=== PATIENT | female | born 1950 | race Caucasian/White ===

== ENCOUNTER 2017-02-17 09:01 | Day surgery (SDC) | payer OTHER ==
[2017-02-17] VITALS (10 sets, daily range): BP systolic 148–185; BP diastolic 58–87; PULSE 60–78; RESP 18; TEMP 97.8–98.3; O2SAT 95–98
[~2017-02-17] VITALS: Ht 162.6 cm; Wt 53.6 kg
[~2017-02-17 09:01] MED LIST: CALC500T21 PO; DICY1TAB26 PO; FISHCAP PO; PROB1TAB PO; PROT40TA PO; SODIUM CHLOR 0.9% 1000 ML IV SCH; ULTR50TA PO; ZOFR4TAB3 SL
[2017-02-17 10:02] LABS: APTT (PATIENT) 26.9 SEC (24.3-30.1); INTERNATIONAL NORMALIZED RATIO 0.9 RATIO; PROTHROMBIN TIME - PATIENT 10.3 SEC (9.8-11.6)
[2017-02-17] MEDS ORDERED: APRI0.372 PO (10:04)
[2017-02-17 10:10] LABS: AUTOMATED NEUTROPHIL # 5.9 TH/MM3 (1.8-7.7); BASOPHIL # 0.1 TH/MM3 (0-0.2); BASOPHIL % 0.5 % (0.0-2.0); EOSINOPHIL # 0.1 TH/MM3 (0-0.4); EOSINOPHIL % 1.2 % (0.0-4.0); HEMATOCRIT 46.8 % (35.0-46.0); HEMO FLAGS DIFF FINAL; LYMPHOCYTE # 3.3 TH/MM3 (1.0-4.8); MEAN CELL VOLUME 85.4 FL (80.0-100.0); MEAN CORPUSCULAR HEMOGLOBIN 28.5 PG (27.0-34.0); MEAN CORPUSCULAR HGB CONC 33.4 % (32.0-36.0); MONO % 8.6 % (0.0-8.0); NEUT % 57.7 % (16.0-70.0); PLATELET COUNT 297 TH/MM3 (150-450); RED BLOOD COUNT 5.49 MIL/MM3 (4.00-5.30); RED CELL DISTRIBUTION WIDTH 13.6 % (11.6-17.2); WHITE BLOOD COUNT 10.2 TH/MM3 (4.0-11.0)
[2017-02-17] MEDS ORDERED: LIDOCAINE HCL 1% 20 ML VIAL ONE (11:01)
--- NOTE | 2017-02-17 11:39 | PD.RAD ---
Post CT Procedure Prog Note Pre Procedure Diagnosis: (1) Hep C w/o coma, chronic Post Procedure Diagnosis: (1) Hep C w/o coma, chronic Procedure Date: Feb 17, 2017 Supervising Radiologist: Pasha Mendes JR Anesthesia: Local Plan of Activity Patient to Unit: [facility] See PACS Report for procedural detail/treatment Biopsy Imaging Guidance: CT Biopsy Procedure: Liver Specimen: Core Biopsy Findings: Good core sample obtained. Jr. Vaughn,Pasha Bey MD Feb 17, 2017 11:38
--- NOTE | 2017-02-17 12:31 | RADRPT ---
EXAM DATE/TIME: 02/17/2017 11:21 [place] COMPARISON: No previous studies available for comparison. INDICATIONS : Hepatitis C BIOPSY SITE: liver DEVICE(S): 1.) 18 gauge BioPince needle MEDICAL HISTORY : Hepatitis C. SURGICAL HISTORY : None. ENCOUNTER: Initial ACUITY: 1 day PAIN SCORE: 0/10 LOCATION: abdomen A total of one core specimen(s) were obtained and sent to the laboratory for pathologic evaluation. PROCEDURE: 1. CT guided liver biopsy. Prior to the procedure informed consent was obtained. Any appropriate prior imaging studies were rev iewed. Using automated exposure control and adjustment of the mA and/or kV according to patient size, radiat ion dose was kept as low as reasonably achievable to obtain optimal diagnostic quality images. DICOM format image data is available electronically for review and comparison. The site was prepped in a sterile fashion. Full sterile technique was used, including cap, mask, cari rile gloves and gown and a large sterile sheet. Hand hygiene and 2% chlorhexidine and/or betadine/al cohol prep was utilized per protocol for cutaneous antisepsis. The skin and subcutaneous tissues wer e infiltrated with local anesthetic solution. With CT guidance the previously identified target was localized. Biopsy was performed using the presc ribed needle as above. Adequate hemostasis was obtained with compression at the puncture site. Follow-up CT scan reveals no hemorrhage. The patient tolerated the procedure well and there were no complications. The patient was returned to the Radiology Outpatient Unit in stable condition. CONCLUSION: Uncomplicated CT guided liver core biopsy. Pasha Mendes Jr., MD on February 17, 2017 at 12:29 Board Certified Radiologist. This report was verified electronically.
== END 2017-02-17 16:00 | disposition home or self-care (01) ==
LOC: HRIP 09:01 → HRAD 09:01
PROVIDERS: ATTEND Physician Assistant Medical
DX: B18.2 Chronic viral hepatitis C (principal)
CPT/HCPCS: 47000; 77012; 85025; 85610; 85730; 88307; 88313; G0463; J7030; 99211